=== PATIENT | male | born 1975 | race Caucasian/White ===

== ENCOUNTER 2016-12-31 18:56 | Emergency (ER) | payer OTHER ==
[2016-12-31] MEDS ORDERED: NO HOME MEDICATION XX (19:30)
[2016-12-31] MEDS ORDERED: NORCO 5-325 TA1 EACH PO (19:47)
== END 2016-12-31 20:51 ==
LOC: EDMED 18:56
DX: T23.231A Burn of second degree of multiple right fingers (nail), not including thumb, initial encounter (principal); T31.0 Burns involving less than 10% of body surface; Z23 Encounter for immunization; X19.XXXA Contact with other heat and hot substances, initial encounter; Y92.019 Unspecified place in single-family (private) house as the place of occurrence of the external cause